=== PATIENT | male | born 1985 | race Caucasian/White ===

== ENCOUNTER 2021-03-11 02:08 | Emergency (ER) | payer OTHER ==
[~2021-03-11 02:08] MED LIST: BACTRIM DS TAB1 EACH PO; HYDROCODON-ACE1 EAC2 PO; NORCO 5-325 TA1 EACH PO; TORADOL 10 MG T10 MG PO; ZOFRAN ODT 4 MG4 MG SL
[2021-03-11 03:36] LABS: HEMOGLOBIN 14.9 gm/dl (14.0-17.5); RED BLOOD COUNT 4.53 M/UL (4.20-5.50); WHITE BLOOD COUNT 7.8 K/UL (4.5-11.0)
[2021-03-11 03:44] LABS: BUN/CREATININE RATIO 13 (0-10)
[2021-03-11] MEDS ORDERED: CYCLOBENZAPRINE10 MG PO (04:45)
== END 2021-03-11 05:18 | disposition home or self-care (01) ==
LOC: ER1 02:08
PROVIDERS: Physician Assistant
DX: N20.0 Calculus of kidney (principal); Z87.442 Personal history of urinary calculi; Z79.899 Other long term (current) drug therapy
CPT/HCPCS: 80053; 81001; 85025; 96374; 96375; 99284; J1885; J2270; J2405; J7030

== ENCOUNTER 2021-04-10 22:35 | Emergency (ER) | payer OTHER ==
[~2021-04-10 22:35] MED LIST changes: +CYCLOBENZAPRINE10 MG PO
== END 2021-04-11 01:28 | disposition home or self-care (01) ==
LOC: ER1 22:35
DX: G89.29 Other chronic pain (principal); M54.5 Low back pain; Z90.89 Acquired absence of other organs
CPT/HCPCS: 96372; 99283; J1100; J1885

== ENCOUNTER → 2022-03-03 | Outpatient (CLI) | payer OTHER ==
[~2022-03-03] MED LIST changes: +NEURONTIN300 MG PO; +PROVENTIL HFA6.7 GM INH
[2022-03-03 08:50] LABS: HEMOGLOBIN 15.3 gm/dl (14.0-17.5); RED BLOOD COUNT 4.68 M/UL (4.20-5.50); WHITE BLOOD COUNT 6.5 K/UL (4.5-11.0)
[2022-03-03 09:20] LABS: BUN/CREATININE RATIO 13 (0-10)
[2022-03-04 10:16] LABS: HBSAG SCREEN Negative (Negative); HEP A AB, IGM Negative (Negative); HEP B CORE AB, IGM Negative (Negative); HEP C VIRUS AB <0.1 (0.0-0.9)
== END ==
LOC: OPSV2 07:51 → EDSTATUS 08:00
PROVIDERS: Orthopaedic Surgery
DX: Z01.818 Encounter for other preprocedural examination (principal); M51.27 Other intervertebral disc displacement, lumbosacral region
CPT/HCPCS: 36415; 80048; 80074; 81001; 83036; 85027; 85610; 85652; 85730; 86140; 87081; 93005

== ENCOUNTER → 2022-03-08 | Outpatient (CLI) | payer OTHER ==
[2022-03-08 14:41] LABS: BUN/CREATININE RATIO 12 (0-10)
== END ==
LOC: LAB 13:48
PROVIDERS: Orthopaedic Surgery
DX: Z01.812 Encounter for preprocedural laboratory examination (principal)
CPT/HCPCS: 36415; 80048; 86850; 86900; 86901

== ENCOUNTER → 2022-03-09 | Day surgery (SDC) | payer OTHER | END | disposition home or self-care (01) | LOC: OR 08:53 | DX: M51.17 Intervertebral disc disorders with radiculopathy, lumbosacral region (principal); J45.909 Unspecified asthma, uncomplicated; G47.30 Sleep apnea, unspecified; K21.9 Gastro-esophageal reflux disease without esophagitis; Z99.89 Dependence on other enabling machines and devices; Z79.899 Other long term (current) drug therapy | CPT/HCPCS: 72100; 76000; J0690; J1040; J2001; J2250; J2704; J2930; J3010; J3370; J7040; J7120 ==

== ENCOUNTER 2022-03-17 20:14 | Emergency (ER) | payer OTHER ==
[2022-03-17 22:12] LABS: HEMOGLOBIN 14.8 gm/dl (14.0-17.5); RED BLOOD COUNT 4.57 M/UL (4.20-5.50); WHITE BLOOD COUNT 8.7 K/UL (4.5-11.0)
[2022-03-17 22:31] LABS: BUN/CREATININE RATIO 13 (0-10)
[2022-03-17] MEDS ORDERED: ENDOCET 5-3251 EACH PO (23:00)
== END 2022-03-17 23:08 | disposition home or self-care (01) ==
LOC: ER1 20:14
PROVIDERS: Physician Assistant
DX: G89.18 Other acute postprocedural pain (principal); M54.50 Low back pain, unspecified; F17.290 Nicotine dependence, other tobacco product, uncomplicated
CPT/HCPCS: 72132; 80053; 85025; 85652; 86140; 96374; 96375; 99284; J1885; J2270; J2405; Q9967

== ENCOUNTER 2022-07-10 18:41 | Emergency (ER) | payer OTHER ==
[~2022-07-10 18:41] MED LIST changes: +ENDOCET 5-3251 EACH PO
[2022-07-10] MEDS ORDERED: ZANAFLEX4 MG PO (22:13)
== END 2022-07-10 22:57 | disposition home or self-care (01) ==
LOC: ER1 18:41
DX: S33.5XXA Sprain of ligaments of lumbar spine, initial encounter (principal); X50.9XXA Other and unspecified overexertion or strenuous movements or postures, initial encounter
CPT/HCPCS: 96372; 99283; J1885